=== PATIENT | male | born 1990 | race Two or more races ===

== ENCOUNTER 2018-03-19 13:45 | Inpatient (IN) | payer OTHER ==
[~2018-03-19] VITALS: Ht 160 cm; Wt 67.6 kg
[~2018-03-19 13:45] MED LIST: CLONAZEPAM0.5 M1 PO
[2018-03-29] MEDS ORDERED: PERCOCET 5-3251 EACH PO (13:16)
== END 2018-03-29 14:01 | disposition home or self-care (01) | DRG 331 ==
LOC: SURH 03-26 05:38 → O/R 03-26 05:38 → SURH 03-26 07:00
PROVIDERS: ADMIT Surgery
PROC: 0DTN4ZZ Resection of Sigmoid Colon, Percutaneous Endoscopic Approach (ICD-10-PCS; principal; 2018-03-26 07:00)
DX: K57.20 Diverticulitis of large intestine with perforation and abscess without bleeding (principal); E11.9 Type 2 diabetes mellitus without complications